=== PATIENT | female | born 1950 | race Caucasian/White ===

== ENCOUNTER → 2018-06-28 | Outpatient (CLI) | payer MEDICARE, OTHER | END | disposition home or self-care (01) | LOC: PETCFH 10:52 | PROVIDERS: ATTEND Orthopaedic Surgery | DX: Z96.641 Presence of right artificial hip joint (principal) | CPT/HCPCS: 78315; A9503 ==

== ENCOUNTER 2019-07-19 09:19 | Outpatient (CLI) | payer MEDICARE, OTHER ==
[2019-07-19] MEDS ORDERED: bydureon INJ (09:54)
[2019-07-19] MEDS ORDERED: SPIR25TA5 PO (09:54)
[2019-07-19] MEDS ORDERED: ROSU40TA PO (09:54)
[2019-07-19] MEDS ORDERED: MULT1TAB60 PO (09:54)
[2019-07-19] MEDS ORDERED: LACT1CAP40 PO (09:54)
[2019-07-19] MEDS ORDERED: LOSA25TA25 PO (09:54)
[2019-07-19] MEDS ORDERED: METF500T27 PO (09:54)
[2019-07-19] MEDS ORDERED: METO25TA91 PO (09:54)
[2019-07-19] MEDS ORDERED: CEPH-376 PO (09:54)
[2019-07-19] MEDS ORDERED: CLOP75TA PO (09:54)
[2019-07-19] MEDS ORDERED: CANA100T PO (09:54)
[2019-07-19] MEDS ORDERED: GABA100C PO ×2 (09:54)
[2019-07-19 10:33] LABS: BASOPHILS # (AUTO) 0.04 x10^3/uL (0-0.1); BASOPHILS % (AUTO) 1 % (0-1); EOSINOPHILS # (AUTO) 0.28 x10^3/uL (0-0.4); EOSINOPHILS % (AUTO) 4 % (1-7); LYMPHOCYTES # (AUTO) 2.06 x10^3/uL (1-3.4); LYMPHOCYTES % (AUTO) 26 % (22-44); MD NO; MEAN CORPUSCULAR HEMOGLOBIN 27.7 pg (27.0-34.8); MEAN CORPUSCULAR HGB CONC 32.7 g/dL (32.4-35.8); MEAN CORPUSCULAR VOLUME 84.6 fL (80-100); MEAN PLATELET VOLUME 7.5 fL (7.4-10.4); MONOCYTES # (AUTO) 0.48 x10^3/uL (0.2-0.8); MONOCYTES % (AUTO) 6 % (2-9); NEUTROPHILS % (AUTO) 64 % (42-75); PLATELET COUNT 292 x10^3/uL (130-400); RED BLOOD COUNT 4.56 x10^6/uL (3.82-5.3)
[2019-07-19 10:43] LABS: INTERNATIONAL NORMALIZED RATIO 0.95 (0.93-1.1); PROTHROMBIN TIME 10.1 Seconds (9.6-11.5)
[2019-07-19 10:45] LABS: ALBUMIN 3.6 g/dL (3.4-5.0); ANION GAP 8 mmol/L (5-15); CALCIUM 9.5 mg/dL (8.5-10.1); CHLORIDE 108 mmol/L (98-107)
[2019-07-19 10:50] LABS: ALANINE AMINOTRANSFERASE 30 U/L (12-78); ALKALINE PHOSPHATASE 69 U/L (45-117); BILIRUBIN,TOTAL 0.6 mg/dL (0.2-1.0); CREATININE 1.51 mg/dL (0.55-1.02)
== END 2019-07-19 23:59 | disposition home or self-care (01) ==
LOC: STAR 09:19
PROVIDERS: ATTEND Orthopaedic Surgery
DX: Z01.818 Encounter for other preprocedural examination (principal); Z11.59 Encounter for screening for other viral diseases; M16.12 Unilateral primary osteoarthritis, left hip
CPT/HCPCS: 36415; 80053; 83036; 85025; 85610; 85730; 87081; 87806; 93005; U0001; G0475

== ENCOUNTER 2019-07-23 08:30 | Observation (INO) | payer MEDICARE, OTHER ==
[~2019-07-23] VITALS: Ht 162.6 cm; Wt 84.0 kg
[~2019-07-23 08:30] MED LIST: CANA100T PO; CEFAZOLIN 1,000 MG ONE; CEPH-376 PO; CLOP75TA PO; DEXAMETHASONE 4 MG/ML, 1ML ONE; EPINEPHRINE 1 MG/ML, 1ML ONE; FENTANYL PF 250 MCG/5ML ONE; GABA100C PO; GLYCOPYRROLATE 0.2MG/1ML, 5ML ONE; KETOROLAC 60 MG/2 ML ONE; LACT1CAP40 PO; LOSA25TA25 PO; METF500T27 PO; METO25TA91 PO; MIDAZOLAM 1 MG/ML, 2ML ONE; MULT-449 PO; NEOSTIGMINE 1 MG/ML, 10ML ONE; ONDANSETRON 2MG/ML, 2ML ONE; PHENYLEPHRINE 10 MG/ML ONE; PROPOFOL 10 MG/ML, 20ML ONE; ROCURONIUM 10MG/ML,5ML ONE; ROPIvacaine/PF 0.2%, 20 ML ONE; ROSU40TA PO; SODIUM CHLORIDE 0.9% 50 ML ONE; SPIR25TA5 PO; TRANEXAMIC ACID 100 MG/ML, 10ML ONE; bydureon INJ
[2019-07-23] MEDS ORDERED: LACTATED RINGERS 1,000 ML IV SCH (09:17)
[2019-07-23] MEDS ORDERED: ACETAMINOPHEN 500 MG TABLET PO STA (09:19)
[2019-07-23] MEDS ORDERED: SODIUM CHLORIDE 0.9% 1,000 ML IV SCH (09:26)
[2019-07-23] MEDS ORDERED: CHLORHEXIDINE 15 ML UDC MM ONE (09:30)
[2019-07-23] MEDS ORDERED: PROMETHAZINE 25 MG/ML, 1ML IVPush PRN (10:30)
[2019-07-23] MEDS ORDERED: HALOPERIDOL 5 MG/ML IV PRN (10:30)
[2019-07-23] MEDS ORDERED: FENTANYL PF 100 MCG/2ML IV PRN (10:30)
[2019-07-23] MEDS ORDERED: MEPERIDINE/PF 25MG/0.5ML IVPush PRN (10:30)
[2019-07-23] MEDS ORDERED: LABETALOL 5MG/ML, 20ML IV PRN (10:30)
[2019-07-23] MEDS ORDERED: OXYcodone 5 MG/5 ML ORAL.SOL UDC PO PRN (10:30)
[2019-07-23] MEDS ORDERED: ACETAMINOPHEN 325 MG TABLET PO PRN (10:30)
[2019-07-23] MEDS ORDERED: HYDROmorphone 1 MG/ML, 1ML INJ IVPush PRN ×2 (10:30→13:00)
[2019-07-23] MEDS ORDERED: hydrALAzine 20 MG/ML, 1ML IV PRN (10:30)
[2019-07-23] MEDS ORDERED: FENTANYL PF 100 MCG/2ML ONE ×2 (12:14→13:10)
[2019-07-23] MEDS ORDERED: ALUMINUM/MAG/SIMETHICONE 30 ML UDC PO PRN (13:00)
[2019-07-23] MEDS ORDERED: DIPHENHYDRAMINE 50 MG/ML, 1ML IVPush PRN (13:00)
[2019-07-23] MEDS ORDERED: ONDANSETRON 4 MG TABLET PO PRN (13:00)
[2019-07-23] MEDS ORDERED: POLYETHYLENE GLYCOL 17 GM PACKET PO PRN (13:00)
[2019-07-23] MEDS ORDERED: PSYLLIUM PACKET PO PRN (13:00)
[2019-07-23] MEDS ORDERED: ONDANSETRON 2MG/ML, 2ML IV PRN (13:00)
[2019-07-23] MEDS ORDERED: MAGNESIUM HYDROXIDE 8%, 30ML UDC PO PRN (13:00)
[2019-07-23] MEDS ORDERED: TRANEXAMIC ACID 1,000 MG in SODIUM CHLORIDE 0.9% 100 ML IVPB ONE (13:00)
[2019-07-23] MEDS ORDERED: OXYcodone 5 MG/5 ML ORAL.SOL UDC ONE (13:10)
[2019-07-23] MEDS ORDERED: HYDROmorphone 1 MG/ML, 1ML INJ ONE (13:31)
[2019-07-23] MEDS ORDERED: PROMETHAZINE 25 MG/ML, 1ML ONE (13:54)
[2019-07-23] MEDS: POTASSIUM CHLORIDE 20 MEQ in LACTATED RINGERS 1,000 ML IV SCH (14:50)
[2019-07-23] MEDS: OXYcodone IR 5MG TABLET PO PRN ×2 (18:29→22:26)
[2019-07-23 20:00] VITALS: BP 106/65
[2019-07-23] MEDS: CEFAZOLIN PMX 1GM/50ML 50 ML IVPB SCH (20:07)
[2019-07-23] MEDS: DOCUSATE 100 MG CAPSULE PO SCH (20:07)
[2019-07-23] MEDS ORDERED: GABAPENTIN 100 MG CAPSULE PO SCH (21:00)
[2019-07-23] MEDS ORDERED: ATORVASTATIN 80 MG TABLET PO SCH (21:00)
[2019-07-24 00:20] VITALS: BP 111/61
[2019-07-24] MEDS: POTASSIUM CHLORIDE 20 MEQ in LACTATED RINGERS 1,000 ML IV SCH ×2 (00:33→11:02)
[2019-07-24] MEDS: OXYcodone IR 5MG TABLET PO PRN ×4 (02:33→11:01)
[2019-07-24 03:30] VITALS: BP 120/67
[2019-07-24] MEDS: CEFAZOLIN PMX 1GM/50ML 50 ML IVPB SCH (03:59)
[2019-07-24] MEDS ORDERED: METOPROLOL SUCCINATE 25 MG TAB.ER.24H PO SCH (06:00)
[2019-07-24 07:46] VITALS: BP 95/56
[2019-07-24] MEDS ORDERED: metFORMIN XR 500 MG TAB.ER.24H PO SCH (08:00)
[2019-07-24] MEDS: DOCUSATE 100 MG CAPSULE PO SCH (08:27)
[2019-07-24] MEDS ORDERED: SPIRONOLACTONE 25 MG TABLET PO SCH (09:00)
[2019-07-24] MEDS ORDERED: LOSARTAN 25MG TABLET PO SCH (09:00)
[2019-07-24] MEDS ORDERED: CANAGLIFLOZIN 100 MG HOMEMEDPO SCH (09:00)
[2019-07-24] MEDS ORDERED: CLOPIDOGREL 75 MG TABLET PO SCH (09:00)
[2019-07-24] MEDS ORDERED: TAMSULOSIN 0.4 MG CAP.ER.24H PO SCH (09:00)
[2019-07-24] MEDS ORDERED: MULTIVITAMINS/MINERALS TABLET PO SCH (09:00)
[2019-07-24] MEDS ORDERED: GABAPENTIN 100 MG CAPSULE PO SCH (09:00)
== END 2019-07-24 11:35 | disposition home or self-care (01) ==
LOC: OUT 08:30 → ORIP 12:57 → 4NE 14:22 → DCLOUNGE 07-24 11:28
PROVIDERS: ADMIT Orthopaedic Surgery; ATTEND Orthopaedic Surgery
DX: M16.12 Unilateral primary osteoarthritis, left hip (principal); M21.70 Unequal limb length (acquired), unspecified site; M19.90 Unspecified osteoarthritis, unspecified site; E11.9 Type 2 diabetes mellitus without complications; G45.9 Transient cerebral ischemic attack, unspecified; I11.0 Hypertensive heart disease with heart failure; I50.9 Heart failure, unspecified; E78.5 Hyperlipidemia, unspecified; Z79.899 Other long term (current) drug therapy
CPT/HCPCS: 27130; 36415; 72170; 82962; 85014; 85018; 86850; 86900; 96365; 96366; 97110; 97161; C1713; C1776; G0378; J0171; J0690; J1100; J1170; J2250; J2370; J2405; J2550; J2704; J2710; J2795; J3010; J3480; J7030; J7120; J1885

== ENCOUNTER 2019-12-19 10:56 | Outpatient (CLI) | payer MEDICARE, OTHER ==
[~2019-12-19 10:56] MED LIST changes: -CEFAZOLIN 1,000 MG ONE; -DEXAMETHASONE 4 MG/ML, 1ML ONE; -EPINEPHRINE 1 MG/ML, 1ML ONE; -FENTANYL PF 250 MCG/5ML ONE; -GLYCOPYRROLATE 0.2MG/1ML, 5ML ONE; -KETOROLAC 60 MG/2 ML ONE; -MIDAZOLAM 1 MG/ML, 2ML ONE; -NEOSTIGMINE 1 MG/ML, 10ML ONE; -ONDANSETRON 2MG/ML, 2ML ONE; -PHENYLEPHRINE 10 MG/ML ONE; -PROPOFOL 10 MG/ML, 20ML ONE; -ROCURONIUM 10MG/ML,5ML ONE; -ROPIvacaine/PF 0.2%, 20 ML ONE; -SODIUM CHLORIDE 0.9% 50 ML ONE; -TRANEXAMIC ACID 100 MG/ML, 10ML ONE
[2019-12-19 13:29] LABS: BASOPHILS % (AUTO) 1 % (0-1); EOSINOPHILS % (AUTO) 2 % (1-7); LYMPHOCYTES % (AUTO) 21 % (22-44); MEAN CORPUSCULAR HEMOGLOBIN 27.1 pg (27.0-34.8); MEAN CORPUSCULAR HGB CONC 32.8 g/dL (32.4-35.8); MEAN PLATELET VOLUME 7.6 fL (7.4-10.4); MONOCYTES % (AUTO) 7 % (2-9); NEUTROPHILS % (AUTO) 69 % (42-75); PLATELET COUNT 335 x10^3/uL (130-400); RED BLOOD COUNT 4.86 x10^6/uL (3.82-5.3); RED CELL DISTRIBUTION WIDTH 15.6 % (9.6-15.2)
[2019-12-19 13:33] LABS: MD NO
[2019-12-19 13:34] LABS: ALBUMIN 3.9 g/dL (3.4-5.0); ANION GAP 7 mmol/L (5-15); CALCIUM 9.8 mg/dL (8.5-10.1); CHLORIDE 107 mmol/L (98-107)
[2019-12-19 13:35] LABS: INTERNATIONAL NORMALIZED RATIO 0.99 (0.93-1.1); PROTHROMBIN TIME 10.5 Seconds (9.6-11.5)
[2019-12-19 13:38] LABS: ALANINE AMINOTRANSFERASE 23 U/L (12-78); ALKALINE PHOSPHATASE 89 U/L (45-117); CREATININE 1.68 mg/dL (0.55-1.02); TOTAL PROTEIN 7.2 g/dL (6.4-8.2)
[2019-12-21] MEDS ORDERED: UBID100C41 PO (10:33)
[2019-12-21] MEDS ORDERED: METF500T17 PO (10:33)
[2019-12-21] MEDS ORDERED: POTA20TA14 PO (10:33)
[2019-12-21] MEDS ORDERED: EXEN2PEN INJ (10:33)
[2019-12-21] MEDS ORDERED: PREVAGAN PO (10:33)
== END 2019-12-19 23:59 | disposition home or self-care (01) ==
LOC: STAR 10:56
PROVIDERS: ATTEND Orthopaedic Surgery
DX: Z01.818 Encounter for other preprocedural examination (principal); Z20.828 Contact with and (suspected) exposure to other viral communicable diseases; M16.11 Unilateral primary osteoarthritis, right hip; Z96.641 Presence of right artificial hip joint
CPT/HCPCS: 36415; 80053; 83036; 85025; 85610; 85730; 87081; 87635; 87806; 93005; G0475